=== PATIENT | female | born 1995 | race Caucasian/White ===

== ENCOUNTER 2022-02-28 09:45 | Emergency (ER) | payer OTHER, SELFPAY ==
[2022-02-28 10:11] VITALS: BP 136/80; PULSE 99; RESP 16; TEMP 36.4; O2SAT 92; BMI 30.5
--- NOTE | 2022-02-28 10:12 | W.ED.URI ---
HPI - URI/Sore Throat General: Chief Complaint: General Medical Stated Complaint: cough Time Seen by Provider: 02/28/22 10:12 Source: patient Mode of arrival: ambulatory Limitations: no limitations History of Present Illness: 26-year-old female with a history of asthma presents to the ER today for congestion and a cough x5 days. Patient reports she has been using nasal spray for congestion which does seem to help some however the cough is not improving. Patient was given an inhaler by her PCP but has been having to use it every 4 hours if not sooner. 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 Using [id number] meds with no improvement. Patient reports that chest is very tight to breathe and she gets short of breath easily when playing with her kids. Patient denies any fever, chills, sore throat, chest pain, nausea, vomiting, diarrhea, constipation. Review of Systems General: Reports: 10 or more systems reviewed and unremarkable except in HPI and below Physical Exam Const: COMMON NORMALS: no acute distress, average body habitus, patient oriented x3, no limitations, healthy appearing and alert HENMT: COMMON NORMALS: normocephalic, hearing grossly normal bilaterally, external ears normal, Normal external nose present, moist oral mucous membranes and oropharynx normal HEAD & SCALP: normocephalic NOSE: Normal external nose present, Abnormal mucous membranes and turbinates present erythematous and Nasal discharge present clear EXTERNAL EAR: Yes external ears normal Eye: COMMON NORMALS: conjunctivae normal CONJUNCTIVA: Yes conjunctivae normal Lymph: LYMPHATIC: no lymphadenopathy noted Resp: COMMON NORMALS: No retractions and No use of accessory muscles EFFORT & INSPECTION: Yes able to speak in complete sentences AUSCULTATION: rhonchi throughout, wheezes upper bilaterally and diminished lung sounds Cardio: COMMON NORMALS: regular rate and regular rhythm RATE: regular rate RHYTHM: regular rhythm Extremity: COMMON NORMALS: normal to inspection and full ROM Neuro: COMMON NORMALS: patient oriented x3 SENSORIUM/ORIENTATION: Yes alert Psych: COMMON NORMALS: mental status grossly normal, Normal thought process present and cooperative THOUGHT PROCESS: Normal thought process present Skin: COMMON NORMALS: no rashes or lesions noted GENERAL SKIN EXAM: no rashes or lesions noted Course ED course: 26-year-old female presents to the ER today for cough and congestion x5 days. Patient has a history of asthma and reports she is having to use her inhaler more than 6 times daily due to the shortness of breath. 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 We will do a chest x-ray given on exam patient has wheezes and decreased breath sounds throughout. Vital Signs: Vital signs: Vital Signs Temperature 97.5 F L 02/28/22 10:11 Pulse Rate 99 02/28/22 10:11 Respiratory Rate 16 02/28/22 10:11 Blood Pressure 136/80 02/28/22 10:11 Pulse Oximetry 92 02/28/22 10:11 MDM - URI/Sore Throat Medical Decision Making 26-year-old female presents to the ER today for cough and congestion x5 days. Patient has a history of asthma and reports she is having to use her inhaler more than 6 times daily due to the shortness of breath. 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 We will do a chest x-ray given on exam patient has wheezes and decreased breath sounds throughout. Chest x-ray in ER is normal. We will treat patient for an asthma exacerbation caused by an acute respiratory illness. We will treat with a steroid taper in addition to Mucinex twice daily. Recommended patient continue her rescue inhaler as needed. We will also add Advair for maintenance. Follow-up with PCP in 5 to 7 days if no improvement. Return to the ER with new or worsening symptoms. Patient verbalized understanding and was in agreement with the treatment plan. Lab Data Radiology Impressions Chest X-Ray 02/28/22 10:15 IMPRESSION: No acute cardiopulmonary abnormality. Critical Care Time Critical Care Time: Critical Care Time: No Discharge Plan Discharge Patient Disposition: Home Clinical Impression: Asthma exacerbation, URI (upper respiratory infection) Condition: Stable Prescriptions: New Medrol (Agus) 4 mg tablets,dose pack See Rx Instructions .ROUTE .COMPLEX Qty: 21 0RF Rx Instructions: orally per package directions Mucinex 600 mg tablet extended release 12hr 1,200 mg PO BID PRN (Reason: cough) 7 Days Qty: 28 0RF Advair Diskus 250-50 mcg/dose blister with device 1 inh inhalation BID 30 Days Qty: 60 0RF Discharge Orders: Discharge ED (Routine); Ordered 02/28/22 Ordered By: Ymoaira Delgado Referrals: Momo Cox MD [Primary Care Provider] - Discharge Diet: Usual diet Discharge Activity: Resume usual activity Patient Instructions: Opioid Safety Activity Restrictions/Additional Instructions: Take Medrol Dosepak and Mucinex as prescribed. Use inhaler as prescribed. Continue to use albuterol inhaler at home as previously prescribed. Increase fluid intake. Follow-up with PCP in 5 to 7 days if no improvement. Return to the ER with new or worsening symptoms. Coding Level of Care Code ED [employer] for [employer] Fwd Exam Comprehensive
--- NOTE | 2022-02-28 10:15 | XRR_ITS ---
PROCEDURE INFORMATION: Exam: XR Chest Exam date and time: 02/28/2022 10:30 AM Age: 26 years old Clinical indication: Cough and wheezing; Additional info: Cough, wheezing, SOB TECHNIQUE: Imaging protocol: XR of the chest. Views: 2 views. COMPARISON: CR Chest 2 views* [id number] 12/13/2016 11:36 AM FINDINGS: Lungs: The lung parenchyma is clear. Pleural spaces: No pneumothorax. No pleural effusion. Heart/Mediastinum: The cardiomediastinal silhouette is within normal limits. Bones/joints: Unremarkable. XR/XR chest 2V* [id number] IMPRESSION: No acute cardiopulmonary abnormality.
[2022-02-28 11:20] VITALS: BP 121/71; PULSE 82; RESP 18; TEMP 36.6; O2SAT 94
== END 2022-02-28 11:23 | disposition home or self-care (01) ==
PROVIDERS: Emergency Provider Physician Assistant; PCP Family Medicine
DX: J45.901 Unspecified asthma with (acute) exacerbation (principal); J06.9 Acute upper respiratory infection, unspecified
CPT/HCPCS: 71046; 99283

== ENCOUNTER → 2023-06-22 15:20 | Outpatient (BNVA) | payer BC, SELFPAY | PROVIDERS: PCP Family Medicine; Visit Provider Nurse Practitioner | DX: J02.9 Acute pharyngitis, unspecified (principal); B34.9 Viral infection, unspecified | CPT/HCPCS: 87400; 87426; 87880 ==

== ENCOUNTER → 2024-02-18 12:51 | Outpatient (BNVA) | payer BC, SELFPAY | PROVIDERS: PCP Family Medicine; Visit Provider Emergency Medicine | DX: J02.9 Acute pharyngitis, unspecified (principal) | CPT/HCPCS: 87071; 87880 ==

== ENCOUNTER → 2024-12-04 14:08 | Outpatient (BNVA) | payer MEDICAID, SELFPAY | PROVIDERS: PCP Family Medicine; Visit Provider Orthopaedic Surgery | DX: M54.2 Cervicalgia (principal) | CPT/HCPCS: 72050; 99203 ==

== ENCOUNTER 2025-01-07 15:35 | Emergency (ER) | payer OTHER, MEDICAID, SELFPAY ==
[2025-01-07 15:40] VITALS: BP 132/77; PULSE 74; TEMP 36.7; O2SAT 98; BMI 32.4
--- NOTE | 2025-01-07 16:22 | ED_ITS ---
HPI - Female Genitourinary 2 General: Chief complaint: Vaginal Bleeding Stated complaint: vaginal bleeding, cramping, 6 weeks preg Time Seen by Provider: 01/07/25 16:21 Source: patient Mode of arrival: ambulatory Limitations: no limitations History of Present Illness: Patient is a 29-year-old female who presents today with vaginal bleeding and mild cramping. Patient reports that she is 6 weeks ; receiving OB care from [facility], has not yet had her first ultrasound. She states that she has had blood work done at the clinic including beta hCG quant (states last Tuesday it was 209 and was repeated on Tuesday and was 290). Patient reports that about 5 days ago she began to have scant light pink vaginal bleeding. Patient reports that yesterday this became more of a dark brown color, and today it is bright red. Patient notes that today is the first day she has had to wear a pad for the bleeding. Patient notes some associated mild cramping, however denies pain or any other symptoms. MD elicited complaint: vaginal bleeding Pertinent past history: prior miscarriages Onset (ago): day(s) Location of symptoms: vaginal Severity: mild Quality of pain: cramping Vaginal discharge: none Vaginal bleeding: scant Exacerbating factors: none Relieving factors: none Associated symptoms: Reports no associated symptoms; Deny abdominal pain, headache(s) or nausea Treatment prior to arrival: none Sexual activity: Yes Patient : Yes Related Data Home Medications ?Medication ?Instructions ?Recorded ?Confirmed vitamin with calcium 1 tab PO DAILY 01/07/25 01/07/25 no.72-iron 27 mg-folic acid 1 mg tablet ( Vitamins Plus Low Iron) Allergies Allergy/AdvReac Type Severity Reaction Status Date / Time No Known Allergies Allergy Verified 01/07/25 15:45 Review of Systems 2 Const: Denies: fever(s), chills, body aches, fatigue or malaise Card: Denies: chest pain Resp: Denies: dyspnea GI: Denies: abdominal pain, nausea, vomiting, diarrhea or change in bowel habits : Reports: vaginal bleeding; Denies: flank pain, difficulty voiding, dysuria, urinary frequency, urinary urgency, urinary hesitancy, vaginal odor or pelvic pain Musc: Denies: back pain Skin/Breast: Denies: rash Neuro: Denies: headache(s) or dizziness PFSH ED 2 PFSH: Social History Smoking and tobacco/nicotine status: current every day tobacco/nicotine user Physical Exam 2 Const: COMMON NORMALS: no acute distress, average body habitus, patient oriented x3, no limitations, healthy appearing, alert and well nourished G ENERAL APPEARANCE: cooperative ORIENTATION/CONSCIOUSNESS: Yes awake, Yes oriented to person, Yes oriented to place and Yes oriented to time Resp: COMMON NORMALS: normal respiratory effort and clear to auscultation bilaterally AUSCULTATION: clear to auscultation bilaterally Cardio: COMMON NORMALS: regular rate and regular rhythm RATE: regular rate RHYTHM: regular rhythm GI: COMMON NORMALS: Normal to inspection, nondistended, normoactive bowel sounds present, Soft to palpation, non-tender, No hepatosplenomegaly present and no masses INSPECTION: Yes normal to inspection PALPATION: Yes Soft to palpation, No Tenderness to palpation present (GI), No Guarding due to palpation present (GI), No Rigid due to palpation and Yes No hepatosplenomegaly present : COMMON NORMALS: Yes no CVA tenderness BLADDER/KIDNEY EXAM: Yes no CVA tenderness OB/EXTERNAL & SPECULUM: Deferred OB/external & speculum exam Back/Pelvis: COMMON NORMALS: no CVA tenderness Extremity: GENERAL: Yes normal exam except as noted Neuro: COMMON NORMALS: patient oriented x3 SENSORIUM/ORIENTATION: Yes alert, Yes oriented to person, Yes oriented to place and Yes oriented to time Course 2 Vital Signs: Vital signs: Vital Signs Temperature 98.0 F 01/07/25 15:40 Pulse Rate 73 01/07/25 17:19 Respiratory Rate 16 01/07/25 17:19 Blood Pressure 113/95 01/07/25 17:19 Pulse Oximetry 92 01/07/25 17:19 Oxygen Delivery Me thod Room Air 01/07/25 15:40 MDM - Female Medical Decision Making Patient here at 6 weeks here for vaginal bleeding. She states serum hcg quant last week or 209 on Tuesday and 290 on Tuesday. She is not having any significant pain. Abdomen is nonsurgical. At this time I do not have any concern for ectopic. Serum quant today is 172 and coupled with her bleeding/cramping, most likely indicative of a current miscarriage. Ultrasound imaging is not indicated at this time. Recommend she continue to follow-up with Andrea Boyle. Return ED precautions discussed. She is Rh +. Medical Records I reviewed the patient's medical records. Lab Data I reviewed the patient's lab results. 01/07/25 16:35 01/07/25 16:35 Laboratory Results WBC 9.57 10^3/uL (3.29-11.43) 01/07/25 16:35 RBC 4.85 10^6/uL (3.85-5.65) 01/07/25 16:35 Hgb 14.20 g/dL (11.27-16.99) 01/07/25 16:35 Hct 43.4 % (36-47) 01/07/25 16:35 MCV 89.5 fl (85-98) 01/07/25 16:35 MCH 29.3 pg (27-33) 01/07/25 16:35 MCHC 32.7 g/dL (30-55) 01/07/25 16:35 RDW 12.1 % (12.1-15.1) 01/07/25 16:35 Plt Count 226 10^3/cmm (157-399) 01/07/25 16:35 MPV 9.2 fL (7.4-10.4) 01/07/25 16:35 Neut % (Auto) 63.0 % 01/07/25 16:35 Lymph % (Auto) 28.1 % 01/07/25 16:35 [place] % (Auto) 7.3 % 01/07/25 16:35 Eos % (Auto) 1.1 % 01/07/25 16:35 Baso % (Auto) 0.3 % 01/07/25 16:35 Neut # (Auto) 6.02 10^3/uL (1.8-7.7) 01/07/25 16:35 Lymph # (Auto) 2.7 10^3/uL (0.8-4.8) 01/07/25 16:35 [place] # (Auto) 0.7 10^3/uL (0.2-0.9) 01/07/25 16:35 Eos # (Auto) 0.1 10^3/uL (0.0-0.8) 01/07/25 16:35 Baso # (Auto) 0.0 10^3/uL (0.0-0.1) 01/07/25 16:35 Nucleated RBC % (auto) 0 % 01/07/25 16:35 Nucleated RBCs # 0.0 /100WBC 01/07/25 16:35 Sodium 139 mmol/L (136-145) 01/07/25 16:35 Potassium 3.9 mmol/L (3.5-5.1) 01/07/25 16:35 Chloride 107 mmol/L (98-107) 01/07/25 16:35 Carbon Dioxide 22 mmol/L (22-29) 01/07/25 16:35 Anion Gap 13.9 (5-19) 01/07/25 16:35 BUN 7 mg/dL (6-20) 01/07/25 16:35 Creatinine 0.5 mg/dL (0.5-0.9) 01/07/25 16:35 GFR Calculation 143.9 mL/min (90-130) H 01/07/25 16:35 Glucose 84 mg/dL (65-115) 01/07/25 16:35 Calculated Osmolality 285 mOsm/kg (285-295) 01/07/25 16:35 Calcium 9.0 mg/dL (8.5-10.5) 01/07/25 16:35 Total Bilirubin 0.2 mg/dL (0.15-1.2) 01/07/25 16:35 AST 14 U/L (0-32) 01/07/25 16:35 ALT 16 U/L (0-33) 01/07/25 16:35 Alkaline Phosphatase 69 U/L (35-105) 01/07/25 16:35 Total Protein 7.3 g/dL (6.6-8.7) 01/07/25 16:35 Albumin 4.3 g/dL (3.5-5.2) 01/07/25 16:35 Globulin 3.0 g/dL (1.3-4.6) 01/07/25 16:35 Ser , Semi-Qnt 172.80 mIU/mL 01/07/25 16:35 Urine Color Yellow (Yellow) 01/07/25 16:24 Urine Appearance Cloudy (CLEAR) A 01/07/25 16:24 Urine pH 5.5 (5-7) 01/07/25 16:24 Ur Specific [place] 1.021 (1.005-1.030) 01/07/25 16:24 Urine Protein Trace (Negative) A 01/07/25 16:24 Urine Glucose (UA) Negative (Normal) 01/07/25 16:24 Urine Ketones Trace (Negative) 01/07/25 16:24 Urine Blood 3+ (Negative) A 01/07/25 16:24 Urine Nitrate Negative (Negative) 01/07/25 16:24 Urine Bilirubin Negative (Negative) 01/07/25 16:24 Urine Urobilinogen 1.0 mg/dL (Negative) 01/07/25 16:24 Ur Leukocyte Esterase 1+ (Negative) A 01/07/25 16:24 Urine RBC >100 /hpf (0-2) H 01/07/25 16:24 Urine WBC 11-20 /hpf (0-5) H 01/07/25 16:24 Ur Squamous Epith Cells 0-5 /hpf (0-5) 01/07/25 16:24 Amorphous Sediment Not Reportable 01/07/25 16:24 Urine Bacteria None seen /hpf (NONE) 01/07/25 16:24 Hyaline Casts 0.40 /lpf 01/07/25 16:24 Blood Type B Positive 01/07/25 16:35 Rho(D) Type Rh positive 01/07/25 16:35 No radiology studies performed this visit Discharge Plan Discharge Patient Disposition: Home Clinical Impression: Miscarriage Condition: Stable Prescriptions: No Action Vitamin Plus Low Iron 27 mg iron- 1 mg tablet 1 tab PO DAILY Discharge Orders: Discharge ED (Routine); Ordered 01/07/25 Ordered By: Diane Arce Referrals: Momo Cox MD [Primary Care Provider] - Activity Restrictions/Additional Instructions: As we discussed, your hCG today was 172. This is quite a bit lower than the 290 that you stated it was on Tuesday through [facility]. Please reach out to Dr. Cox, your OB provider tomorrow to let him know today's results. He may want to continue plan for ultrasound imaging on and he may want to repeat hCG later this week. As we discussed, you need to return to the emergency department for worsening or severe pelvic pain/cramping, severe vaginal bleeding quantified as soaking more than 1 pad an hour for 2-3 consecutive hours or any other concerns you may have. Print Language: Yi Coding Level of Care Code ED It Field Technician for Baljinder Oreilly
[2025-01-07 16:42] LABS: Basophils % 0.3 %; Eosinophils # 0.1 10^3/uL (0.0-0.8); Eosinophils % 1.1 %; Hematocrit 43.4 % (36-47); Lymphocytes # 2.7 10^3/uL (0.8-4.8); Lymphocytes % 28.1 %; Mean Corpuscular HGB Conc 32.7 g/dL (30-55); Mean Corpuscular Hemoglobin 29.3 pg (27-33); Mean Corpuscular Volume 89.5 fl (85-98); Mean Platelet Volume 9.2 fL (7.4-10.4); Monocytes # 0.7 10^3/uL (0.2-0.9); Monocytes % 7.3 %; Neutrophils # 6.02 10^3/uL (1.8-7.7); Nucleated Red Blood Cells % 0 %; Platelet Count 226 10^3/cmm (157-399); Red Blood Count 4.85 10^6/uL (3.85-5.65); Red Cell Distribution Width 12.1 % (12.1-15.1); White Blood Count 9.57 10^3/uL (3.29-11.43)
[2025-01-07 16:43] LABS: Bilirubin Urine Negative (Negative); Blood Urine 3+ (Negative); Glucose Urine UA Negative (Normal); Ketones Urine Trace (Negative); Leukocyte Esterase Urine 1+ (Negative); Nitrate Urine Negative (Negative); Protein Urine Trace (Negative); Specific Gravity, Urine 1.021 (1.005-1.030); Urine Appearance Cloudy (CLEAR); Urine Color Yellow (Yellow); pH Urine 5.5 (5-7)
[2025-01-07 16:45] LABS: Add Urine Microscopic? YES; Bacteria Urine None Seen /hpf; RBC Urine >100 /hpf (0-2); Squamous Epithelial Cell Urine 0-5 /hpf (0-5)
[2025-01-07 16:53] LABS: Add Urine Culture? Yes
[2025-01-07 17:15] LABS: Alanine Aminotransferase 16 U/L (0-33); Albumin Level 4.3 g/dL (3.5-5.2); Alkaline Phosphatase 69 U/L (35-105); Anion Gap 13.9 (5-19); Aspartate Amino Transferase 14 U/L (0-32); Blood Urea Nitrogen 7 mg/dL (6-20); Carbon Dioxide 22 mmol/L (22-29); Chloride 107 mmol/L (98-107); Creatinine Clr Calc Pharmacy 172.7192; Glomerular Filtration Rate 143.9 mL/min (90-130); Glucose 84 mg/dL (65-115); Osmolality Calculated 285 mOsm/kg (285-295); Potassium 3.9 mmol/L (3.5-5.1); Sodium 139 mmol/L (136-145); Total Bilirubin 0.2 mg/dL (0.15-1.2); Total Protein 7.3 g/dL (6.6-8.7)
[2025-01-07 17:19] VITALS: BP 113/95; PULSE 73; RESP 16; O2SAT 92
== END 2025-01-07 17:19 | disposition home or self-care (01) ==
PROVIDERS: Emergency Provider Physician Assistant; PCP Family Medicine
DX: O03.9 Complete or unspecified spontaneous abortion without complication (principal)
CPT/HCPCS: 36415; 80053; 81001; 84702; 85025; 86900; 87086; 99283